=== PATIENT | female | born 1955 | race Hispanic/Latino ===

== ENCOUNTER 2020-04-23 21:10 | Emergency (ER) | payer SELFPAY ==
[~2020-04-23] VITALS: Ht 154.9 cm; Wt 90.7 kg
--- NOTE | 2020-04-23 22:17 | Diagnostic Imaging Report ---
EXAMINATION: Head CT without contrast. HISTORY:Syncope, fall. COMPARISON:None. TECHNIQUE: Multidetector axial images were obtained from the foramen magnum to the vertex without contrast. The images were reconstructed using brain and bone algorithms. Thin section brain images were reformatted into coronal and sagittal planes. Dose modulation, iterative reconstruction, and/or weight based adjustment of the mA/kV was utilized to reduce the radiation dose to as low as reasonably achievable. Intravenous contrast: None IMAGE QUALITY: Acceptable. FINDINGS: Skull/scalp: No lytic or blastic. lesions. No surgical changes. Parenchyma: Punctate dystrophic calcification in right talamantes radiata. No significant surrounding edema or regional mass effect. Nonspecific few, scattered supratentorial white matter hypodensity are likely related to small vessel ischemic changes. No acute hemorrhage, mass or acute major vascular territorial infarct. Arteries: No density suggestive of thrombosis. Dural sinuses: No abnormal density suggestive of thrombosis. Ventricles: No hydrocephalus or displacement. Extra-axial spaces: No abnormal density. Brain volume: Normal for age. Craniocervical junction: No mass, Chiari malformation, or basilar invagination. Sella: No mass. Paranasal/mastoid sinuses: Mild mucosal thickening in left sphenoid sinus. IMPRESSION: No acute intracranial abnormality. Signed by: Dr. Ly Hartmann M.D. on 04/23/2020 10:13 PM
--- NOTE | 2020-04-23 22:18 | Emergency Department Note ---
History of Present Illnes History of Present Illness Chief Complaint: General Medicine Complaints History of Present Illness This is a 64 year old female Chief Complaint Comment 64 Y/O FEMALE PT PRESENTS TO ED FOLLOWING mechanical fall AT HOME WITH LOC; PT HAS APPROX 1.5 CM LACERATION TO BOTTOM LIP; PTS V/S/S; PT REPORTS PAIN TO BUE Historian: Patient, Family Member, Inventory Checker/EMS Arrival Mode: [place] Senior Communications Specialist Required: No Onset (how long ago): hour(s) Location: Face Quality: dull Radiation: Reports non-radiation Severity: moderate Onset quality: sudden Duration (how long): hour(s) (1) Timing of current episode: constant Progression: unchanged Chronicity: new Context: Denies recent illness, Denies recent surgery Relieving factors: none Exacerbating factors: none Associated symptoms: Reports denies other symptoms Treatments prior to arrival: none Past Medical/Family History Physician Review I have reviewed the patient's past medical and family history. Any updates have been documented here. Past Medical History Recent Fever: No Clinical Suspicion of Infectio: No New/Unexplained Change in Ment: No Past Medical History: Hypertension, Diabetes, Hyperlipedemia Past Surgical History: None Review of Systems Review of Systems Constitutional: Reports as per HPI EENTM: Reports as per HPI (Facial pain) Cardiovascular: Reports no symptoms Respiratory: Reports no symptoms Gastrointestinal: Reports no symptoms Genitourinary: Reports no symptoms Musculoskeletal: Reports as per HPI (Bilateral shoulder) Integumentary: Reports no symptoms Neurological: Reports no symptoms Psychological: Reports no symptoms Endocrine: Reports no symptoms Hematological/Lymphatic: Reports no symptoms Physical Exam Related Data Allergies: Coded Allergies: No Known Allergies (Unverified , 04/23/20) Triage Vital Signs Vital Signs Date Time Temp Pulse Resp B/P (MAP) Pulse Ox O2 Delivery O2 Flow Rate FiO2 04/23/20 21:32 98.8 77 18 153/90 99 Room Air Vital signs reviewed: Yes Physical Exam CONSTITUTIONAL Constitutional: Present well-developed, Present well-nourished HENT HENT: Present normocephalic, Present oropharynx clear/moist, Present nose normal; Absent atraumatic (Laceration to inside bottom lip, abrasions to R face. Maxilla stable, no loose teeth) HENT L/R: Present left ext ear normal, Present right ext ear normal EYES Eyes: Reports PERRL, Reports conjunctivae normal NECK Neck: Present ROM normal PULMONARY Pulmonary: Present effort normal, Present breath sounds normal CARDIOVASCULAR Cardiovascular: Present regular rhythm, Present heart sounds normal, Present capillary refill normal, Present normal rate GASTROINTESTINAL Abdominal: Present soft, Present nontender, Present bowel sounds normal GENITOURINARY Genitourinary: Present exam deferred SKIN Skin: Present warm, Present dry MUSCULOSKELETAL Musculoskeletal: Present ROM normal, Present tenderness (R knee, Upper T spine) NEUROLOGICAL Neurological: Present alert, Present oriented x 3, Present no gross motor or sensory deficits PSYCHOLOGICAL Psychological: Present mood/affect normal, Present judgement normal Procedures 12 Lead ECG Interpretation ECG Interpretation : Senior Communications Specialist: Interpreted by ED physician Date: Apr 23, 2020 Rhythm: sinus rhythm Rate: normal QRS axis: normal ST segments normal: Yes T waves normal: Yes Clinical Impression: normal ECG Assessment & Plan Medical Decision Making MDM 64 y.o F presents for mechanical fall. Exam shows abrasions to R face. Ct's and X-rays show no acute injury. Tetanus updated. Patient appropriate for discharge. Reassessment Reassessment time: 00:35 Reassessment Well appearing, NAD Assessment & Plan Final Impression: (1) Lip laceration (2) Fall Depart Disposition: HOME, SELF-CARE Last Vital Signs Date Time Temp Pulse Resp B/P (MAP) Pulse Ox O2 Delivery O2 Flow Rate FiO2 04/23/20 21:34 98.3 78 18 153/90 100 Room Air CHAVO UREÑA MD Apr 23, 2020 22:17
--- NOTE | 2020-04-23 22:26 | Diagnostic Imaging Report ---
History: Syncope, fall. Comparison studies: None Technique: Axial images were obtained through the cervical region.. Coronal and sagittal images reconstructed from the axial data. Dose modulation, iterative reconstruction, and/or weight based adjustment of the mA/kV was utilized to reduce the radiation dose to as low as reasonably achievable. Intravenous contrast: None Findings: Fractures: None. Soft tissue injuries: None. Atlantoaxial articulation: Intact. Alignment: Loss of normal cervical lordosis is either positional or due to muscle spasm. No scoliosis. No subluxation. Asymmetric widening of the interspinous distance at level C5-C6 may represent age indeterminate underlying ligament injury. Cervicomedullary junction: No abnormalities. The foramen magnum is patent. Soft tissues: Focal calcification of the nuchal ligament at level C5-C6. Vertebrae: No fractures, infection or neoplasm. Degenerative changes: Multilevel degenerative disc disease with prominent bridging anterior vertebral osteophyte, predominantly from level C4 to T1, suggestive of diffuse idiopathic skeletal hyperostosis (DISH). Moderate degenerative changes in the anterior atlantodental joint. C3-C4 and C6-C7: Mild right foraminal stenosis due to facet and uncovertebral arthrosis. C7-T1: Severe right and moderate left foraminal stenosis due to facet and uncovertebral arthrosis. No significant canal stenosis. IMPRESSION: 1. No acute cervical spine fracture or dislocation. 2. Asymmetric widening of the interspinous distance at level C5-C6 represents age indeterminate underlying ligament injury. If there is clinical correlation with point tenderness at this level consider follow-up MRI cervical spine without contrast per trauma protocol for further assessment. 3. Ligament, spinal cord and or vascular abnormalities cannot be excluded on the basis of this examination. 4. Cervical spondylosis as detailed above. Signed by: Dr. Ly Hartmann M.D. on 04/23/2020 10:23 PM
--- OUTSIDE RECORDS SUMMARY | 2020-04-23 22:27 | XMS REPORT | Continuity of Care Document ---
Author Author [facility] t Organization [facility] Address [address] [place] [address] Phone Unavailable Care Team Providers Care Gse Mechanic Name Role Phone Jennie LAZO, P Nihita PCP Esdras Burciaga Attphys Unavailable Mundo DUFF, Le Khalil Attphys Unavailable Ana [facility], Suha Bolivar Attphys Johnathon BONILLA, Rae Attphys Unavailable Tono Ramirez Attphys Unavailable Aashish, Souleymane Nelly Attphys Unavailable Jennie LAZO, Johan Nihita Attphys Rob BONILLA, Anna Attphys Unavailable Cameron Phillips Iris Attphys Unavailable Karen Gold Attphys Unavailable Brett Souza Attphys Lyubov Burris MD, Te Perez Attphys Payers Payer Name Policy Type Policy Number Effective Date Expiration Date Conrad anderson [facility] [id number] [id number] [place] [address] xxxxxxxxx 2020 00:00:00 [facility] Problems Condition Name Condition Details Condition Category Status Onset Date Resolution Date Last Treatment Date Treating Clinician Comments Source Moderate major depression Moderate major depression Disease Ac tive 2019-07-09 00:00:00 [facility] History of heart surgery- [place] ; p t does not know what surgery ; hx of heart murmur- to bring papers related to surgery History of heart surgery- [place] ; pt does not know what surgery ; hx of heart murmur- to bring papers related to surgery Disease Active 2018-02-23 00:00:00 [facility] Inadequately controlled diabetes mellitus Inadequately controlled diabetes mellitus Disease Active 2016-11-03 00:00:00 [facility] ASCUS of cervix with negative high risk HPV ASCUS of c ervix with negative high risk HPV Disease Active 2016-10-06 00:00:00 Overview: 10/06/16 Repeat pap 3 years [facility] Diabetes mellitus type 2 without retinopathy Diabetes mellitus type 2 without retinopathy Disease Active 2015-04-08 00:00:00 [facility] NS (nuclear sclerosis) NS (nuclear sclerosis) Disease Active 2015-04-08 00:00:00 [facility] Hyperopia with astigmatism and presbyopia Hyperopia wi th astigmatism and presbyopia Disease [facility] Di[facility] Disease Active 2010-10-15 00:00 :00 [facility] Diabetes mellitus with complication Diabetes mellitus with compl ication Disease Active 2010-10-15 00:00:00 [facility] LBP (low back pain) LBP (low back pain) Disease Active 2010-03-02 00:00 :00 [facility] Obesity Obesity Disease Active [facility] Heart murmur Heart murmur Disease Active Overview: had open heart surgery for repair in 2007 [facility] Preop exam for internal medicine Preop exam for internal medicin e Disease Active [facility] Allergies, Adverse Reactions, Alerts This patient has no known allergies or adverse reactions. Family History Family Member Diagnosis Comments Start Date Stop Date Source Natural brother Diabetes [facility] Natural mother Arthritis [facility] Natural mother Heart [facility] Natural mother Hypertension [facility] Natural sister Diabetes [facility] Social History Social Habit Start Date Stop Date Quantity Comments Source Sex Assigned At [facility] Exposure to SARS-CoV-2 (event) Not sure [facility] Cigarettes smoked current (pack per day) - Reported 00:00:00 2019-08-09 00:00:00 [facility] Cigarette pack-years 2019-08-09 00:00:00 2019-08-09 00:00:00 [facility] Alcohol intake 2019-08-09 00:00:00 2019-08-09 00:00:00 Current non-drinker of alcohol (finding) [facility] History SDOH Food Worry 2019-01-09 00:00:00 2019[facility]01[facility]09 [facility] 2019-01-09 00:00:2019-01-09 00:00:00 2 [facility] History of tobacco use 1995-05-09 00:00:00 Current smoker [facility] Smoking Status Start Date Stop Date Source Former smoker 2019-08-09 00:00:00 2019-08-09 00:00:00 [facility] Medications Ordered Medication Name Filled Medication Name Start Date Stop Da te Current Medication? Ordering Clinician Indication Dosage Frequency Signature (SIG) Comments Components Source insulin detemir U-100 (LEVEMIR FLEXTOUCH U-100 INSULN) 100 u nit/mL (3 mL) Pen 2019-12-13 00:00:00 Yes Inadequately controlled diabet es mellitus Inject 45 units AM and 20 units PM. [facility] pioglitazone (ACTOS) 45 mg tablet 2019-12-13 00:00:00 Yes Inadequately controlled diabetes mellitus 45mg QD Take 1 tablet by mouth daily. [facility] metFORMIN (GLUCOPHAGE) 500 mg tablet 2019-12-13 00:00:00 Yes Inadequately controlled diabetes mellitus 1000mg Take 2 tabl ets by mouth 2 times daily (with meals). [facility] linaGLIPtin (TRADJENTA) 5 mg tablet 2019-12-13 00:00:00 Yes Inadequately controlled diabetes mellitus 5mg QD Take 1 tablet by mouth daily. [facility] pen needle, diabetic 31 gauge x 3/16" needles 2019-12-13 00: 00:00 Yes Inadequately controlled diabetes mellitus Q.5D Inject under the skin 2 times daily. [facility] insulin detemir U-100 (LEVEMIR FLEXTOUCH U-100 INSULN) 100 u nit/mL (3 mL) Pen 2019-11-16 00:00:00 2019-12-13 00:00:00 No Inadequa tely controlled diabetes mellitus 45U QD Inject 45 Units under the skin daily. [facility] pioglitazone (ACTOS) 45 mg tablet 2019-10-25 00:00:00 2019 00:00:00 No Inadequately controlled diabetes mellitus 45mg QD Take 1 tablet by mouth daily. [facility] insulin detemir U-100 (LEVEMIR FLEXTOUCH U-100 INSULN) 100 u nit/mL (3 mL) Pen 2019-10-25 00:00:00 2019-11-16 00:00:00 No Inadequa tely controlled diabetes mellitus 65U Q.5D Inject 65 Units under the skin 2 times daily Wi meals.. [facility] pen needle, diabetic 31 gauge x 3/16" needles 20 20-09-01 00:00:00 2019-12-13 00:00:00 No Inadequately controlled diabetes mellitus Q.5D Inject under the skin 2 times daily. [facility] lisinopril (PRINIVIL) 5 mg tablet 2019-08-09 00:00:00 Yes Essential hypertension 5mg QD Take 1 tablet by mouth daily. [facility] atorvastatin (LIPITOR) 40 mg tablet 2019-08-09 00:00:00 Yes Hyperlipidemia, unspecified hyperlipidemia type 40mg Take 1 tablet by mouth at bedtime nightly. [facility] metFORMIN (GLUCOPHAGE) 500 mg tablet 2019-08-09 00:00: 00 2019-12-13 00:00:00 No Inadequately controlled diabetes mellitus 1000mg Take 2 tablets by mouth 2 times daily (with meals). [facility] pioglitazone (ACTOS) 45 mg tablet 2019-08-09 00:00:00 2019 00:00:00 No Inadequately controlled diabetes mellitus 45mg QD Take 1 tablet by mouth daily. [facility] blood glucose test strips 2019-08-05 00:00:00 Yes Inadequately controlled diabetes mellitus Q.5D 2 times daily. [facility] linaGLIPtin (TRADJENTA) 5 mg tablet 2019-08-05 00:00:0 0 2019-12-13 00:00:00 No Inadequately controlled diabetes mellitus 5mg QD Take 1 tablet by mouth daily. [facility] metFORMIN (GLUCOPHAGE) 500 mg tablet 2019-08-02 00:00: 00 2019-08-09 00:00:00 No Inadequately controlled diabetes mellitus 1000mg Take 2 tablets by mouth 2 times daily (with meals). [facility] pioglitazone (ACTOS) 30 mg tablet 2019-07-10 00:00:00 2019 00:00:00 No Inadequately controlled diabetes mellitus 30mg QD Take 1 tablet by mouth daily. [facility] sertraline (ZOLOFT) 50 mg tablet 2019-07-09 00:00:00 Yes Moderate major depression 50mg QD Take 1 tablet by mouth daily. [facility] lisinopril (PRINIVIL) 5 mg tablet 2019-04-19 00:00:00 2019 00:00:00 No Essential hypertension 5mg QD Take 1 tablet by mouth shelley jefferson [facility] clotrimazole (LOTRIMIN) 1 % topical cream 2019-04-04 00:00:0 0 Yes Nail fungus Q.5D Apply to affected ar ea 2 times daily To nails and affected area on feet for fungus. [facility] insulin detemir U-100 (LEVEMIR FLEXTOUCH U-100 INSULN) 100 u nit/mL (3 mL) Pen 2019-04-04 00:00:00 2019-10-25 00:00:00 No Inadequa tely controlled diabetes mellitus 65U Q.5D Inject 65 Units under the skin 2 times daily Wi meals.. [facility] pen needle, diabetic 31 gauge x 3/16" needles 20 22-03-29 00:00:00 2019-08-31 00:00:00 No Inadequately controlled diabetes mellitus Q.5D Inject under the skin 2 times daily. [facility] pioglitazone (ACTOS) 15 mg tablet 2019-02-07 00:00:00 2019 00:00:00 No 15mg QD Take 1 tablet by mouth daily. [facility] ibuprofen (MOTRIN) 400 mg tablet 2019-01-18 00:00:00 Yes Chronic pain of left knee 400mg Take 1 tablet by jason th every 12 hours as needed for Pain (take with food). [facility] atorvastatin (LIPITOR) 40 mg tablet 2019-01-18 00:00:0 0 2019-08-09 00:00:00 No Hyperlipidemia, unspecified hyperlipidemia type 40mg Take 1 tablet by mouth at bedtime nightly. [facility] tropicamide (MYDRIACYL) 0.5 % ophthalmic solution 2019-01-09 00:00:00 2019-07-08 23:59:00 No Type 2 diabetes sasha itus without complication, with long-term current use of insulin 1[drp] Instill 1 Drop in each eye once as needed for up to 1 dose (for poor retina scan image). [facility] linaGLIPtin (TRADJENTA) 5 mg tablet 2019-01-02 00:00:0 0 2019-08-03 00:00:00 No Inadequately controlled diabetes mellitus 5mg QD Take 1 tablet by mouth daily. [facility] metFORMIN (GLUCOPHAGE) 500 mg tablet 2019-01-02 00:00: 00 2019-08-01 00:00:00 No Inadequately controlled diabetes mellitus 1000mg Take 2 tablets by mouth 2 times daily (with meals). [facility] lancets 28 gauge 2018-04-21 00:00:00 Yes Inadequately controlled diabetes mellitus Q.5D Use 2 times daily. [facility] blood glucose test strips 2018-04-21 00:00:00 2019-08-03 00: 00:00 No Inadequately controlled diabetes mellitus Q.5D 2 times daily. [facility] blood glucose meter 2016 00:00:00 Yes Uncontrolled type 2 diabetes mellitus without complication, without long-term current use of insulin Use as directed.. [facility] Immunizations Ordered Immunization Name Filled Immunization Name Date Status Comments Source Influenza, Injectable, Quadrivalent 2019-07-09 00:00:00 Co mpleted [facility] Influenza, Vaccine<FLUCELVAX>(Multi-Dose) 2018-06-06 00:00 :00 Completed [facility] Tropicamide 0.5% Eye-Yvrose 15ml 2018-02-28 00:00:00 Complete d [facility] Herpes Zoster Vaccine In Clinic 2016 00:00:00 Comple oli [facility] Influenza Vaccine 2016-06-17 00:00:00 Completed [facility] Influenza Vaccine 2013-05-10 00:00:00 Completed [facility] Influenza Vaccine 2012-05-18 00:00:00 Completed [facility] Tdap Tetanus, diphtheria, acellular pertussis Vaccine 2009-10-27 00:00:00 Completed [facility] PPV 23 Pneumococcal Polysaccaride 2009-10-27 00:00:00 Comp leted [facility] Vital Signs Vital Name Observation Time Observation Value Comments Source Systolic blood pressure 2019-09-13 09:58:00 114 mm[Hg] [facility] Diastolic blood pressure 2019-09-13 09:58:00 53 mm[Hg] [facility] Heart rate 2019-09-13 09:58:00 76 /min [facility] Body temperature 2019-09-13 09:58:00 36.5 Cyndi Mane is [facility] Respiratory rate 2019-09-13 09:58:00 18 /min Mane is [facility] Body height 2019-09-13 09:58:00 157.5 cm [facility] Body weight 2019-09-13 09:58:00 94.348 kg [facility] BMI 2019-09-13 09:58:00 38.04 kg/m2 [facility] Procedures Procedure Date / Time Performed Performing Clinician Sourc e CREATININE 2020-02-21 09:18:00 Katt Perez [facility] ELECTROLYTES 2020-02-21 09:18:00 Katt Perez [facility] HEMOGLOBIN A1C 2020-02-21 09:18:00 Katt Perez [facility] ALANINE AMINOTRASFERASE/ASPARTATE AMINOTRANSFERASE (AL T/AST) 2019-11-07 09:00:00 Katt Perez [facility] CREATININE 2019-11-07 09:00:00 Katt Perez [facility] eah ELECTROLYTES 2019-11-07 09:00:00 Katt Perez [facility] CBC (WITHOUT DIFFERENTIAL) 2019-11-07 09:00:00 Katt Perez corbin [facility] HEMOGLOBIN A1C 2019-11-07 09:00:00 Katt Perez [facility] LIPID PROFILE 2019-11-07 09:00:00 Katt Perezn [facility] HEMOGLOBIN A1C 2019-06-29 11:18:00 Jaz Schneider [facility] COMPREHENSIVE METABOLIC PANEL 2019-06-29 11:18:00 Jaz Schneider [facility] HEMOGLOBIN A1C 2019-05-03 12:02:00 Jaz Schneider [facility] Plan of Care Planned Activity Planned Date Details Comments Source Future Scheduled Test 2021-02-20 00:00:00 Hemoglobin A1c cornelio surement (procedure) [code = 82185798] [facility] Scheduled Test 2020-04-04 00:00:00 DM Foot Exam (Year ly) [code = DM Foot Exam (Yearly)] [facility] Scheduled Test 2020-02-29 00:00:00 Breast Cancer Scrn (Yearly) [code = Breast Cancer Scrn (Yearly)] [facility] Scheduled Test 2020-01-24 00:00:00 Screening for feroz gnant neoplasm of colon (procedure) [code = 387004402] [facility] Scheduled Test 2020-01-13 00:00:00 DM Retinal Exam (Y early) [code = DM Retinal Exam (Yearly)] [facility] Scheduled Test 2019-10-01 00:00:00 Screening for feroz gnant neoplasm of cervix (procedure) [code = 417415490] [facility] Encounters Start Date/Time End Date/Time Encounter Type Admission Type [facility] Care Department Encounter ID Source 2019-11-16 00:00:00 2019-11-16 00:00:00 Outpatient [facility] [id number] [facility] 2019-11-07 08:59:55 2019-11-07 08:59:55 Outpatient [facility] [id number] [facility] 2019-11-07 00:00:00 2019-11-07 00:00:00 Outpatient [facility] [id number] [facility] 2019-10-24 07:52:46 2019-10-24 07:52:46 Outpatient [facility] [id number] [facility] 2019-09-27 00:00:00 2019-09-27 00:00:00 Outpatient [facility] [id number] [facility] 2019-09-13 09:58:41 2019-09-13 09:58:41 Outpatient [facility] [id number] [facility] 2019-08-16 00:00:00 2019-08-16 00:00:00 Outpatient [facility] [id number] [facility] 2019-08-09 11:09:08 2019-08-09 11:09:08 Outpatient [facility] [id number] [facility] 2019-08-09 09:42:57 2019-08-09 09:42:57 Outpatient [facility] [id number] [facility] 2019-08-09 09:04:20 2019-08-09 09:04:20 Outpatient [facility] [id number] [facility] 2019-07-10 14:47:26 2019-07-10 14:47:26 Outpatient [facility] [id number] [facility] 2019-07-09 14:48:31 2019-07-09 14:48:31 Outpatient [facility] [id number] [facility] 2019-06-29 11:13:42 2019-06-29 11:13:42 Outpatient [facility] [id number] [facility] 2019-06-29 00:00:00 2019-06-29 00:00:00 Outpatient [facility] [id number] [facility] 2019-05-03 12:01:48 2019-05-03 12:01:48 Outpatient [facility] [id number] [facility] 2019-05-03 00:00:00 2019-05-03 00:00:00 Outpatient [facility] [id number] [facility] 2019-04-25 00:00:00 2019-04-25 00:00:00 Outpatient [facility] [id number] [facility] 2019-04-24 00:00:00 2019-04-24 00:00:00 Outpatient [facility] [id number] [facility] 2019-04-24 00:00:00 2019-04-24 00:00:00 Outpatient [facility] [id number] [facility] 2019-04-05 08:52:30 2019-04-05 08:52:30 Outpatient [facility] [id number] [facility] 2019-04-04 09:40:25 2019-04-04 09:40:25 Outpatient [facility] [id number] [facility] 2019-03-08 10:17:31 2019-03-08 10:17:31 Outpatient [facility] [id number] [facility] 2019-02-28 07:58:58 2019-02-28 07:58:58 Outpatient [facility] [id number] [facility] 2019-02-26 00:00:00 2019-02-26 00:00:00 Outpatient [facility] [id number] [facility] 2019-02-20 00:00:00 2019-02-20 00:00:00 Outpatient [facility] [id number] [facility] 2019-02-07 08:09:34 2019-02-07 08:09:34 Outpatient [facility] [id number] [facility] 2019-01-23 12:48:50 2019-01-23 12:48:50 Outpatient [facility] [id number] [facility] 2019-01-18 10:57:12 2019-01-18 10:57:12 Outpatient [facility] [id number] [facility] 2019-01-18 10:08:55 2019-01-18 10:08:55 Outpatient [facility] [id number] [facility] 2019-01-12 09:53:09 2019-01-12 09:53:09 Outpatient [facility] [id number] [facility] 2019-01-12 09:44:39 2019-01-12 09:44:39 Outpatient [facility] [id number] [facility] 2019-01-12 08:27:30 2019-01-12 08:27:30 Outpatient [facility] [id number] [facility] 2019-01-12 08:21:50 2019-01-12 08:21:50 Outpatient [facility] [id number] [facility] 2019-01-09 11:41:02 2019-01-09 11:41:02 Outpatient [facility] [id number] [facility] 2019-01-09 10:30:09 2019-01-09 10:30:09 Outpatient [facility] [id number] [facility] 2019-01-09 00:00:00 2019-01-09 00:00:00 Outpatient [facility] [id number] [facility] 2018-12-29 00:00:00 2018-12-29 00:00:00 Outpatient [facility] [id number] [facility] 2018-11-15 11:26:07 2018-11-15 11:26:07 Outpatient [facility] [id number] [facility] 2018-09-28 12:37:02 2018-09-28 12:37:02 Outpatient [facility] [id number] [facility] 2018-09-25 00:00:00 2018-09-25 00:00:00 Outpatient [facility] [id number] [facility] 2018-09-19 12:49:58 2018-09-19 12:49:58 Outpatient [facility] [id number] [facility] 2018-09-19 07:14:52 2018-09-19 07:14:52 Outpatient [facility] [id number] [facility] 2018-08-02 08:45:08 2018-08-02 08:45:08 Outpatient [facility] [id number] [facility] 2018-07-05 15:04:32 2018-07-05 15:04:32 Outpatient [facility] [id number] [facility] 2018-06-19 00:00:00 2018-06-19 00:00:00 Outpatient [facility] [id number] [facility] 2018-06-12 15:13:29 2018-06-12 15:13:29 Outpatient [facility] [id number] [facility] 2018-06-07 15:45:06 2018-06-07 15:45:06 Outpatient [facility] [id number] [facility] 2018-06-06 15:19:10 2018-06-06 15:19:10 Outpatient [facility] [id number] [facility] 2018-06-02 08:29:29 2018-06-02 08:29:29 Outpatient [facility] [id number] [facility] 2018-05-16 00:00:00 2018-05-16 00:00:00 Outpatient [facility] [id number] [facility] 2018-03-13 00:00:00 2018-03-13 00:00:00 Outpatient [facility] [id number] [facility] 2018-02-28 10:44:24 2018-02-28 10:44:24 Outpatient [facility] [id number] [facility] 2018-02-28 10:20:16 2018-02-28 10:20:16 Outpatient [facility] [id number] [facility] 2018-02-28 09:18:28 2018-02-28 09:18:28 Outpatient [facility] [id number] [facility] 2018-02-28 00:00:00 2018-02-28 00:00:00 Outpatient [facility] [id number] [facility] 2018-02-23 16:17:58 2018-02-23 16:17:58 Outpatient [facility] [id number] [facility] 2018-02-21 12:38:24 2018-02-21 12:38:24 Outpatient [facility] [id number] [facility] 2018-01-31 10:48:49 2018-01-31 10:48:49 Outpatient [facility] [id number] [facility] 2018-01-03 00:00:00 2018-01-03 00:00:00 Outpatient [facility] [id number] [facility] 2017-12-06 00:00:00 2017-12-06 00:00:00 Outpatient [facility] [id number] [facility] 2017-12-06 00:00:00 2017-12-06 00:00:00 Outpatient [facility] [id number] [facility] 2017-11-21 00:00:00 2017-11-21 00:00:00 Outpatient [facility] [id number] [facility] 2017-11-07 10:18:48 2017-11-07 10:18:48 Outpatient [facility] [id number] [facility] 2017-11-07 09:54:35 2017-11-07 09:54:35 Outpatient [facility] [id number] [facility] 2017-11-07 00:00:00 2017-11-07 00:00:00 Outpatient [facility] [id number] [facility] 2017-10-28 00:00:00 2017-10-28 00:00:00 Outpatient [facility] [id number] [facility] 2017-10-17 14:36:19 2017-10-17 14:36:19 Outpatient [facility] [id number] [facility] 2017-10-14 00:00:00 2017-10-14 00:00:00 Outpatient [facility] [id number] [facility] 2017-10-14 00:00:00 2017-10-14 00:00:00 Outpatient [facility] [id number] [facility] 2017-10-06 14:31:11 2017-10-06 14:31:11 Outpatient [facility] [id number] [facility] 2017-10-06 14:09:00 2017-10-06 14:09:00 Outpatient [facility] [id number] [facility] 2017-10-06 13:14:31 2017-10-06 13:14:31 Outpatient [facility] [id number] [facility] 2017-10-06 00:00:00 2017-10-06 00:00:00 Outpatient [facility] [id number] [facility] 2017-09-06 00:00:00 2017-09-06 00:00:00 Outpatient [facility] [id number] [facility] 2017-03-18 07:27:48 2017-03-18 07:27:48 Outpatient [facility] [id number] [facility] 2017-02-21 00:00:00 2017-02-21 00:00:00 Outpatient [facility] [id number] [facility] 2017-01-31 00:00:00 2017-01-31 00:00:00 Outpatient [facility] [id number] [facility] 2017-01-26 00:00:00 2017-01-26 00:00:00 Outpatient [facility] [id number] [facility] 2017-01-03 07:59:19 2017-01-03 07:59:19 Outpatient [facility] [id number] [facility] 2016-12-13 09:24:31 2016-12-13 09:24:31 Outpatient [facility] [id number] [facility] 2016-12-13 07:58:57 2016-12-13 07:58:57 Outpatient [facility] [id number] [facility] Results Test Description Test Time Test Comments Results Result Comments Source CT BRAIN WO 2020-04-23 22:07:00 [facility] : 1955 Sex: F [facility] [address] [address] Patient Name: JAYLIN NICHOLAS MR #: [id number] : 1955 Age/Sex: 64/F Req #: [id number] Adm Physician: Ordered by: Chavo Burciaga MD Report #: [id number] Location: ER Room/Bed: Procedure: [id number] CT/CT BRAIN WO Exam Date: Exam Time: REPORT STATUS: Signed EXAMINATION: Head CT without contrast. HISTORY:Syncope, fall. COMPARISON:None. TECHNIQUE: Multidetector axial images were obtained from the foramen magnum to the vertex without contrast. The images were reconstructed using brain and bone algorithms. Thin section brain images were reformatted into coronal and sagittal planes. Dose modulation, iterative reconstruction, and/or weight based adjustment of the mA/kV was utilized to reduce the radiation dose to as low as reasonably achievable. Intravenous contrast: None IMAGE QUALITY: Acceptable. FINDINGS: Skull/scalp: No lytic or blastic. lesions. No surgical ch anges. Parenchyma: Punctate dystrophic calcification in right talamantes radiata. No significant surrounding edema or regional mass effect. Nonspecific few, scattered supratentorial white matter hypodensity are likely related to small vessel ischemic changes. No acute hemorrhage, mass or acute major vascular territorial infarct. Arteries: No density suggestive of thrombosis. Dural sinuses: No abnormal density suggestive of thrombosis. Ventricles: No hydrocephalus or displacement. Extra- axial spaces: No abnormal density. Brain volume: Normal for age. Craniocervical junction: No mass, Chiari malformation, or basilar invagination. Sella: No mass. Paranasal/mastoid sinuses: Mild mucosal thickening in left sphenoid sinus. IMPRESSION: No acute intracranial abnormality. Signed by: Dr. Ly Hartmann M.D. on 04/23/2020 10:13 PM Dictated By: LY HARTMANN MD 12 Transcribed By: AVIVA on 04/23/202212 COPY TO: CHAVO BURCIAGA MD
--- OUTSIDE RECORDS SUMMARY | 2020-04-23 22:27 | XMS REPORT | Clinical Summary ---
Author Author [facility] ict Organization [facility] Address Unknown Phone Unavailable Care Team Providers Care Php Lamp Developer Name Role Phone Jaz Schneider MD PCP Remi Flower RN 44 Unavailable Allergies No Known Allergies Medications End Date Status Medication Sig Dispensed Refills Start Date Active blood glucose Use as 1 Kit 0 meterIndications: directed.. 7 Uncontrolled type 2 diabetes mellitus without complication, without long-term current use of insulin Active lancets 28 Use 2 times 100 Each 11 gaugeIndications: daily. 8 Inadequately controlled diabetes mellitus Active ibuprofen (MOTRIN) 400 mg Take 1 tablet 60 tablet 1 tabletIndications: by mouth 9 Chronic pain of left knee every 12 hours as needed for Pain (take with food). Active clotrimazole (LOTRIMIN) 1 Apply to 30 g 4 % topical affected area 9 creamIndications: Nail 2 times daily fungus To nails and affected area on feet for fungus. Active sertraline (ZOLOFT) 50 mg Take 1 tablet 90 tablet 1 tabletIndications: by mouth 0 Moderate major depression daily. Active blood glucose test 2 times 100 Each 6 02 stripsIndications: daily. 0 Inadequately controlled diabetes mellitus Active lisinopril (PRINIVIL) 5 Take 1 tablet 90 tablet 1 mg tabletIndications: by mouth 0 Essential hypertension daily. Active atorvastatin (LIPITOR) 40 Take 1 tablet 90 tablet 1 mg tabletIndications: by mouth at 0 Hyperlipidemia, bedtime unspecified nightly. hyperlipidemia type Active insulin detemir U-100 Inject 45 20 Pen 1 12/02 (LEVEMIR FLEXTOUCH U-100 units AM and 0 INSULN) 100 unit/mL (3 20 units PM. mL) PenIndications: Inadequately controlled diabetes mellitus Active pioglitazone (ACTOS) 45 Take 1 tablet 90 tablet 1 mg tabletIndications: by mouth 0 Inadequately controlled daily. diabetes mellitus Active metFORMIN (GLUCOPHAGE) Take 2 360 tablet 1 500 mg tabletIndications: tablets by 0 Inadequately controlled mouth 2 times diabetes mellitus daily (with meals). Active linaGLIPtin (TRADJENTA) 5 Take 1 tablet 90 tablet 1 mg tabletIndications: by mouth 0 Inadequately controlled daily. diabetes mellitus Active pen needle, diabetic 31 Inject under 200 Each 6 0 gauge x 3/16" the skin 2 0 needlesIndications: times daily. Inadequately controlled diabetes mellitus 08/03/2019 Discontinued (Reorder) blood glucose test 2 times 100 Each 6 04/21/ 01 stripsIndications: daily. 8 Inadequately controlled diabetes mellitus 08/01/2019 Discontinued (Reorder) metFORMIN (GLUCOPHAGE) Take 2 360 tablet 1 500 mg tabletIndications: tablets by 9 Inadequately controlled mouth 2 times diabetes mellitus daily (with meals). 08/03/2019 Discontinued (Reorder) linaGLIPtin (TRADJENTA) 5 Take 1 tablet 90 tablet 1 mg tabletIndications: by mouth 9 Inadequately controlled daily. diabetes mellitus 07/08/2019 tropicamide (MYDRIACYL) Instill 1 15 mL 0 0.5 % ophthalmic Drop in each 9 solutionIndications: Type eye once as 2 diabetes mellitus needed for up without complication, to 1 dose with long-term current (for poor use of insulin retina scan image). 08/09/2019 Discontinued (Reorder) atorvastatin (LIPITOR) 40 Take 1 tablet 90 tablet 1 mg tabletIndications: by mouth at 9 Hyperlipidemia, bedtime unspecified nightly. hyperlipidemia type 07/10/2019 Discontinued (Dose adjustmen t) pioglitazone (ACTOS) 15 Take 1 tablet 30 tablet 1 mg tablet by mouth 9 daily. 08/31/2019 Discontinued (Reorder) pen needle, diabetic 31 Inject under 200 Each 0 0 gauge x 3/16" the skin 2 9 needlesIndications: times daily. Inadequately controlled diabetes mellitus 10/25/2019 Discontinued insulin detemir U-100 Inject 65 32 Pen 2 10/ (LEVEMIR FLEXTOUCH U-100 Units under 9 INSULN) 100 unit/mL (3 the skin 2 mL) PenIndications: times daily Inadequately controlled With meals.. diabetes mellitus 08/09/2019 Discontinued (Reorder) lisinopril (PRINIVIL) 5 Take 1 tablet 90 tablet 0 04/19/201 mg tabletIndications: by mouth 9 Essential hypertension daily. 08/09/2019 Discontinued (Dose adjustmen t) pioglitazone (ACTOS) 30 Take 1 tablet 90 tablet 0 mg tabletIndications: by mouth 0 Inadequately controlled daily. diabetes mellitus 08/09/2019 Discontinued (Reorder) metFORMIN (GLUCOPHAGE) Take 2 360 tablet 0 500 mg tabletIndications: tablets by 0 Inadequately controlled mouth 2 times diabetes mellitus daily (with meals). 12/13/2019 Discontinued (Reorder) linaGLIPtin (TRADJENTA) 5 Take 1 tablet 90 tablet 1 mg tabletIndications: by mouth 0 Inadequately controlled daily. diabetes mellitus 12/13/2019 Discontinued (Reorder) metFORMIN (GLUCOPHAGE) Take 2 360 tablet 1 500 mg tabletIndications: tablets by 0 Inadequately controlled mouth 2 times diabetes mellitus daily (with meals). 10/25/2019 Discontinued pioglitazone (ACTOS) 45 Take 1 tablet 90 tablet 0 mg tabletIndications: by mouth 0 Inadequately controlled daily. diabetes mellitus 12/13/2019 Discontinued (Reorder) pen needle, diabetic 31 Inject under 200 Each 0 0 gauge x /16" the skin 2 0 needlesIndications: times daily. Inadequately controlled diabetes mellitus 11/16/2019 Discontinued (Reorder) insulin detemir U-100 Inject 65 32 Pen 2 10/03 (LEVEMIR FLEXTOUCH U-100 Units under 0 INSULN) 100 unit/mL (3 the skin 2 mL) PenIndications: times daily Inadequately controlled With meals.. diabetes mellitus 12/13/2019 Discontinued (Reorder) pioglitazone (ACTOS) 45 Take 1 tablet 90 tablet 0 mg tabletIndications: by mouth 0 Inadequately controlled daily. diabetes mellitus 12/13/2019 Discontinued (Reorder) insulin detemir U-100 Inject 45 14 Pen 2 11/01 (LEVEMIR FLEXTOUCH U-100 Units under 0 INSULN) 100 unit/mL (3 the skin mL) PenIndications: daily. Inadequately controlled diabetes mellitus Active Problems Problem Noted Date Moderate major depression 07/09/2019 History of heart surgery- [place] ; pt does not kn ow what surgery ; hx 02/23/2018 of heart murmur- to bring papers relate d to surgery Inadequately controlled diabetes mellitus 11/03/2016 ASCUS of cervix with negative high risk HPV 10/07/19 17 Overview: 10/06/16 Repeat pap 3 years Diabetes mellitus type 2 without retinopathy 015 NS (nuclear sclerosis) 04/08/2015 Hyperopia with astigmatism and presbyopia 04/08/2015 Diabetic neuropathy 10/15/2010 Diabetes mellitus with complication 10/15/2010 LBP (low back pain) 03/02/2010 Obesity Heart murmur Overview: had open heart surgery for repair in 20 02 Preop exam for internal medicine Encounters Care Team Description Date Type Specialty Remi Flower RN 04/03/2020 Patient Patient Education Education Katt Perez RPH Inadequately controlled diabetes mellitu s (Primary Dx) 04/02/2020 Telephonic Clinical Pharmacy Encounter Remi Flower RN 03/20/2020 Patient Patient Education Education Rae Diego LD 03/05/2020 Nutrition Radha Dillard 02/27/2020 Patient Nutrition Education Remi Flower, SHERIN 02/14/2020 Patient Patient Education Education Nelly Zendejas 01/31/2020 Patient Patient Education Education Katt Perez RPH Inadequately controlled diabetes mellitu s (Primary Dx) 01/24/2020 Telephonic Clinical Pharmacy Encounter Jaz Schneider MD 01/17/2020 Orders Only Family Practice Jaz Schneider MD 01/16/2020 Orders Only Family Practice Katt Perez RPH Inadequately controlled diabetes mellitu s 12/13/2019 Telephonic Clinical Pharmacy Encounter Anna Rivas LD 12/10/2019 Nutrition Nutrition Kacie Phillips 12/06/2019 Nutrition Nutrition Karen Gold 11/21/2019 Nutrition Nutrition Katt Perez RPH Inadequately controlled diabetes mellitu s 11/16/2019 Telephonic Clinical Pharmacy Encounter Karen Gold 11/07/2019 Nutrition Nutrition Jaz Schneider MD Medications 10/25/2019 Refill [facility] Katt Perez RPH Inadequately controlled diabetes mellitu s (Primary Dx) 10/24/2019 Telephonic Clinical Pharmacy Encounter Karen Gold 10/23/2019 Nutrition Nutrition Anna Rivas, IRENE 10/17/2019 Nutrition Anna Haque, IRENE 10/12/2019 Nutrition Remi Aguilar RN 10/11/2019 Patient Patient Education Education Karen Gold 10/03/2019 Nutrition Nutrition Katt Perez [facility] Inadequately controlled diabetes mellitu s (Primary Dx) 09/13/2019 Office Visit Clinical Pharmacy Jaz Schneider MD 09/03/2019 Clinical [facility] Jaz Schneider MD Medications 08/31/2019 Refill [facility] Katt Perez RPH Inadequately controlled diabetes mellitu s; Essential hypertension; Hyperlipidemia, unspecified hyperlipidemia type 08/09/2019 Office Visit Clinical Pharmacy Katt Perez [facility] Patient left without being seen (Primary Dx) 08/09/2019 Office Visit Clinical Pharmacy [facility] Depression, unspecified depression type (Primary Dx) 08/09/2019 Office Visit Psychology Jaz Schneider MD Medications 08/03/2019 Refill [facility] Jaz Schneider MD Medications 08/01/2019 Refill [facility] Remi Flower RN 07/19/2019 Patient Patient Education Education Katt Perez [facility] Ana Sandoval MD Inadequately controlled diabetes mellitu s (Primary Dx) 07/10/2019 Office Visit Clinical Pharmacy Ana Sandoval MD Moderate major depression (Primary Dx); Diabetes mellitus type 2 without retinopathy; Need for dental care; Encounter for administration of vaccine; Dietary counseling for Above / Below Normal BMI; Exercise counseling for Above Normal BMI Only! 07/09/2019 Office Visit [facility] Ana Sandoval MD 07/09/2019 Orders Only [facility] Remi Flower RN 07/05/2019 Patient Patient Education Education Remi Flower, SHERIN 06/21/2019 Patient Patient Education Education Remi Flower, SHERIN 06/07/2019 Patient Patient Education Education Karen Gold 05/24/2019 Nutrition Nutrition Remi Flower, SHERIN 05/03/2019 Patient Patient Education Education Remi Flower, RN Uncontrolled blood glucose (Primary Dx) 05/03/2019 Patient Patient Education Education after 04/23/2019 Immunizations Name Administration Dates Next Due Herpes Zoster Vaccine In 2016 Clinic Influenza Vaccine 06/17/2016, 05/10/2013, Influenza, Injectable, 07/09/2019 Quadrivalent Influenza, 06/06/2018 Vaccine<FLUCELVAX>(Multi- Dose) PPV 23 Pneumococcal 10/27/2009 Polysaccaride Tdap Tetanus, diphtheria, 10/27/2009 acellular pertussis Vaccine Tropicamide 0.5% Eye-Yvrose 02/28/2018 15ml Family History Medical History Relation Name Comments Diabetes Brother Arthritis Mother Heart Mother Hypertension Mother Diabetes Sister Relation Name Status Comments Brother Alive Brother Daughter Alive x2 Father Maternal Grandfather Maternal Grandmother Mother Paternal Grandfather Paternal Grandmother Sister Alive x3 Sister Son Alive x3 Social History Date Tobacco Use Types Packs/Day Years Used Quit: 05/09/1995 Former Smoker Cigarettes 0.1 3 Smokeless Tobacco: Former User Tobacco Cessation: Counseling Given: No Drinks/Week oz/Week Comments Alcohol Use No Food Insecurity Answer Date Recorded Within the past 12 months, you worried that your Often abdulkadir e 01/09/2019 food would run out before you got money to buy more. Within the past 12 months, the food you bought Sometimes t rue 01/09/2019 just didn't last and you didn't have mo prashanth to get more. Sex Assigned at Date Recorded Not on file Industry Job Start Date Occupation Not on file Not on file Not on file Travel End Travel History Travel Start No recent travel history available. Date Recorded COVID-19 Exposure Response 03/28/2020 9:07 AM CDT In the last month, have you been in contact with No / Unsure someone who was confirmed or suspected to have Coronavirus / COVID-19? Last Filed Vital Signs Reading Time Taken Comments Vital Sign 114/53 09/13/2019 9:58 AM CDT Blood Pressure 76 09/13/2019 9:58 AM CDT Pulse 36.5 C (97.7 F) 09/13/2019 9:58 AM CDT Temperature 18 09/13/2019 9:58 AM CDT Respiratory Rate - - Oxygen Saturation - - Inhaled Oxygen Concentration 94.3 kg (208 lb) 09/13/2019 9:58 AM CDT Weight 157.5 cm (5' 2") 09/13/2019 9:58 AM CDT Height 38.04 09/13/2019 9:58 AM CDT Body Mass Index Plan of Treatment Health Maintenance Due Date Last Done Comments Cervical Cancer Scrn (3 10/01/2019 09/30/2016, Yrs) 05/11/2012, 05/26/2009 DM Retinal Exam (Yearly) 01/13/2020 01/12/2019, 02/28/2018, 09/15/2016, Additional history exists Colorectal Cancer Scrn 01/24/2020 01/23/2019, Annual (FIT/FOBT) Age 50 10/17/2017, to 75 06/18/2016 Breast Cancer Scrn 02/29/2020 02/28/2019, (Yearly) 02/28/2018, 07/27/2016, Additional history exists DM Foot Exam (Yearly) 04/04/2020 04/04/2019, 02/23/2018, 04/19/2013, Additional history exists DM HGBA1C (Yearly) 02/20/2021 02/21/2020, 11/07/2019, 06/29/2019, Additional history exists Goals Goal Patient Associated Recent Progress Patient-Stat Aut hor Goal Type Problems ed? Reduce sugar intake Diet On track (05/24/2019 No Trimino, 12:48 PM UPHOLSTERY SEWER) IRENE Ley Note: soda Use plate model Diet On track (05/24/2019 No T rimino, 12:48 PM UPHOLSTERY SEWER) IRENE Ley I will eat dinner at the same General Yes Prideaux, time each day Karen LOWER BLOOD GLUCOSE Lifestyle Not on track No Mariah Em (12/20/2017 4:57 PM G, RN CDT) Lower blood glucose Lifestyle No Hannah Briseno Eat Healthy Lifestyle Not on track No Nela Davis (07/09/2019 3:46 PM Tracey UPHOLSTERY SEWER) Exercise Regularly Self On track (05/24/2019 No Mariah Orozco management 12:48 PM UPHOLSTERY SEWER) G, RN Eat non-starchy vegetables Self On track (05/24/2019 No Alla management 12:48 PM UPHOLSTERY SEWER) Karen Procedures Comments Procedure Name Priority Date/Time Associated Diag nosis HEMOGLOBIN A1C Routine 02/21/2020 Inadequately co ntrolled 9:18 AM CDT diabetes mellitus ELECTROLYTES Routine 02/21/2020 Inadequately co ntrolled 9:18 AM CDT diabetes mellitus CREATININE Routine 02/21/2020 Inadequately co ntrolled 9:18 AM CDT diabetes mellitus LIPID PROFILE Routine 11/07/2019 Inadequately co ntrolled 9:00 AM CDT diabetes mellitus HEMOGLOBIN A1C Routine 11/07/2019 Inadequately co ntrolled 9:00 AM CDT diabetes mellitus CBC (WITHOUT Routine 11/07/2019 Inadequately co ntrolled DIFFERENTIAL) 9:00 AM CDT diabetes mellitus ELECTROLYTES Routine 11/07/2019 Inadequately co ntrolled 9:00 AM CDT diabetes mellitus CREATININE Routine 11/07/2019 Inadequately co ntrolled 9:00 AM CDT diabetes mellitus ALANINE Routine 11/07/2019 Inadequately co ntrolled AMINOTRASFERASE/ASPARTATE 9:00 AM CDT diabetes me llitus AMINOTRANSFERASE (ALT/AST) COMPREHENSIVE METABOLIC Routine 06/29/2019 Inadeq uately controlled PANEL 11:18 AM UPHOLSTERY SEWER diabetes mellitus HEMOGLOBIN A1C Routine 06/29/2019 Inadequately co ntrolled 11:18 AM UPHOLSTERY SEWER diabetes mellitus HEMOGLOBIN A1C Routine 05/03/2019 Uncontrolled bl ood 12:02 PM CDT glucose after 04/23/2019 Results * Creatinine (02/21/2020 9:18 AM CDT) Only the most recent of 2 results within the time period is included. Creatinine 0.6 0.6 - 1.2 mg/dL [facility] GFR, Estimated >90 >=90 mL/min/1.73 m2 [facility] Specimen Blood Performing Organization Address [facility] one Number [facility] [address] [place] [address] * Hemoglobin A1C (02/21/2020 9:18 AM CDT) Only the most recent of 4 results within the time period is included. Pathologist [facility] Hemoglobin A1c 6.2 (H) 4.3 - 6.1 % [facility] Estimated 131 (H) 70 - 110 mg/dL [facility] Average Glucose [facility] Specimen Blood Performing Organization Address [facility] one Number [facility] [address], [place] [id number] * Electrolytes (02/21/2020 9:18 AM CDT) Only the most recent of 2 results within the time period is included. Sodium 140 136 - 145 mmol/L [facility] Potassium 4.9 3.5 - 5.1 mmol/L [facility] Chloride 104 98 - 107 mmol/L [facility] CO2 28 21 - 31 mmol/L [facility] Anion Gap 8 5 - 16 mmol/L [facility] Specimen Blood Performing Organization Address [facility] one Number [facility] [address] [place] [address] * Lipid Profile (11/07/2019 9:00 AM CDT) Cholesterol 156.0 <=200.0 mg/dL [facility] Triglyceride 70 <150 mg/dL [facility] HDL 61.0 See Reference Range [facility] Narrative. mg/dL [facility] LDL 81 <100 mg/dL [facility] Comment: [facility] Optimal: < 100.0 mg/dL Near Optimal: 120-129 mg/dL Borderline: 130-159 mg/dL High: 160-189 mg/dL Very High: >=190 mg/dL Patient Yes [facility] Fasting? LABOR[facility] Specimen Blood Performing Organization Address [facility] one Number [facility] [address] [id number] [phone] * CBC (without differential) (11/07/2019 9:00 AM CDT) Pathologist [facility] WBC 7.6 4.5 - 11.0 K/uL [facility] RBC 3.90 (L) 4.20 - 5.40 M/uL [facility] Hemoglobin 11.5 (L) 12.0 - 16.0 g/dL [facility] Hematocrit 36.4 (L) 37.0 - 47.0 % [facility] MCV 93.3 (H) 82.0 - 92.0 fL [facility] MCH 29.5 27.0 - 32.0 pg [facility] MCHC 31.6 (L) 32.0 - 36.0 g/dL [facility] RDW 50.5 (H) 36.4 - 46.3 fL [facility] Platelet 296 150 - 400 K/uL [facility] Mean Platelet 11.2 9.4 - 12.4 fL [facility] Volume [facility] Percent NRBC 0.0 % [facility] Specimen Blood Performing Organization Address [facility] Ph one Number [facility] [address] [place] [address] * ALT/AST (11/07/2019 9:00 AM CDT) [facility] ALT 15 7 - 52 U/L [facility] AST 17 13 - 39 U/L [facility] Specimen Blood Performing Organization Address [facility] Ph one Number [facility] [address] [place] [address] [phone] * Comprehensive Metabolic Panel (06/29/2019 11:18 AM UPHOLSTERY SEWER) Pathologist [facility] Sodium 139 136 - 145 mmol/L [facility] Potassium 5.1 3.5 - 5.1 mmol/L [facility] Chloride 102 98 - 107 mmol/L [facility] CO2 28 21 - 31 mmol/L [facility] Glucose 233 (H) 70 - 110 mg/dL [facility] Calcium 9.2 8.6 - 10.3 mg/dL [facility] Urea Nitrogen 15.0 7.0 - 25.0 mg/dL [facility] Creatinine 0.6 0.6 - 1.2 mg/dL [facility] Alkaline 124 (H) 34 - 104 U/L [facility] Phosphatase [facility] ALT 25 7 - 52 U/L [facility] AST 14 13 - 39 U/L [facility] Bilirubin, 0.4 0.2 - 1.2 mg/dL [facility] Total [facility] Total Protein 6.6 6.0 - 8.3 g/dL [facility] GFR, Estimated >90 >=90 mL/min/1.73 m2 [facility] Albumin 3.6 (L) 3.7 - 5.3 g/dL [facility] Anion Gap 9 5 - 16 mmol/L [facility] Specimen Blood Performing Organization Address City/State/Zipcode Ph one Number [facility] [address] [place] [phone] after 04/23/2019 Insurance Type Payer Benefit Subscriber ID Effective Phone Address Plan / Dates Group [facility] SELF-PAY SELF-PAY xxxxxxxxx 2020- [phone] [facility] [place] [address] Guarantor Name Account Relation to Date of Phone Vance diez Address Type Patient JAYLIN RICHARDS Personal/F Head of 1955 [phone] [facility]Home[facility] [place], [place] [address] (Self)
--- NOTE | 2020-04-23 22:32 | Diagnostic Imaging Report ---
History:Trauma, fall. Comparison studies: None Technique: Axial images were obtained through the maxillofacial region. Coronal and sagittal images reconstructed from the axial data. Dose modulation, iterative reconstruction, and/or weight based adjustment of the mA/kV was utilized to reduce the radiation dose to as low as reasonably achievable. Intravenous contrast: None Findings: Soft tissues: Minimal right upper lip subcutaneous soft tissue swelling. No soft tissue emphysema or radiopaque foreign body. Bones: No fractures or bony abnormalities. Orbits: Globes: Intact Extra or intraconal abnormalities: None. Paranasal sinuses: Clear Incidental finding: Mild degenerative changes in left temporomandibular joint. IMPRESSION: No acute fracture. Minimal right upper lip soft tissue swelling. Signed by: Dr. Ly Hartmann M.D. on 04/23/2020 10:29 PM
[2020-04-23 22:33] LABS: BASOPHILS # (AUTO) 0.1 (0.0-0.1); BASOPHILS % 0.5 % (0.0-1.0); EOSINOPHILS # (AUTO) 0.1 (0.0-0.4); EOSINOPHILS % 1.3 % (0.0-6.0); HEMATOCRIT 35.7 % (34.2-44.1); HEMOGLOBIN 11.4 g/dL (12.0-16.0); LYMPHOCYTES # (AUTO) 2.6 (1.0-3.2); LYMPHOCYTES % 24.3 % (18.0-39.1); MEAN CORPUSCULAR HEMOGLOBIN 29.4 pg (28-32); MEAN CORPUSCULAR HGB CONC 31.9 g/dL (31-35); MONOCYTES # (AUTO) 0.7 (0.2-0.8); MONOCYTES % 6.3 % (4.4-11.3); NEUTROPHILS # (AUTO) 7.1 (2.1-6.9); NEUTROPHILS % 67.2 % (38.7-80.0); PLATELET COUNT 333 x10e3/uL (140-360); RED BLOOD COUNT 3.88 x10e6/uL (3.6-5.1); RED CELL DISTRIBUTION WIDTH 14.6 % (11.7-14.4)
[2020-04-23 22:43] LABS: INR 0.96; PROTHROMBIN TIME 13.3 seconds (11.9-14.5)
[2020-04-23 22:52] LABS: ALANINE AMINOTRANSFERASE 17 IU/L (0-55); ALBUMIN 3.6 g/dL (3.5-5.0); ALKALINE PHOSPHATASE 117 IU/L (40-150); ANION GAP 15.2 mmol/L (8-16); BLOOD UREA NITROGEN 19 mg/dL (7-26); BUN/CREATININE RATIO 22 (6-25); CALCIUM 9.2 mg/dL (8.4-10.2); CARBON DIOXIDE 26 mmol/L (22-29); CHLORIDE 102 mmol/L (98-107); CREATININE, SERUM 0.88 mg/dL (0.57-1.11); EST GLOMERULAR FILTRATION RATE > 60 ML/MIN (60-); GLUCOSE 188 mg/dL (74-118); POTASSIUM 4.2 mmol/L (3.5-5.1); SODIUM 139 mmol/L (136-145)
[2020-04-23] MEDS ORDERED: TETANUS/DIPHTHERIA TOX ADULT 0.5 ML SYR IM ONE (23:30)
--- NOTE | 2020-04-23 23:52 | Diagnostic Imaging Report ---
History: Trauma, fall complains of upper back tenderness. Comparison studies: None Technique: Axial were obtained without IV contrast through the thoracic region. Coronal and sagittal images reconstructed from the axial data. Dose modulation, iterative reconstruction, and/or weight based adjustment of the mA/kV was utilized to reduce the radiation dose to as low as reasonably achievable. Intravenous contrast: None Findings: Alignment: Normal kyphosis. Mild dextrocurvature of the thoracic spine may be positional or due to scoliosis. No subluxation. Soft tissues: Mild atherosclerotic calcification in the aorta. Left nephrolithiasis is partially visualized.. Paraspinal muscles: Unremarkable Spinal cord: Can not be evaluated. Vertebrae: No fractures, infection or neoplasm. Degenerative changes: Multilevel degenerative disc disease and bridging anterior vertebral osteophytes represents diffuse idiopathic skeletal hyperostosis (DISH). No significant canal or foraminal stenosis. IMPRESSION: 1. No acute thoracic spine fracture and dislocation. 2. Ligament, spinal cord and or vascular abnormalities cannot be excluded on the basis of this examination. Signed by: Dr. Ly Hartmann M.D. on 04/23/2020 11:48 PM
--- NOTE | 2020-04-24 00:09 | Diagnostic Imaging Report ---
EXAMINATION: CHEST SINGLE (PORTABLE) INDICATION: Fall COMPARISON: Thoracic spine CT 04/23/2020 FINDINGS: TUBES and LINES: None. LUNGS: Normal lung volumes. Lungs are clear. Prominent central pulmonary vasculature. PLEURA: No pleural effusion or pneumothorax. HEART AND MEDIASTINUM: Cardiac size is mildly enlarged. BONES AND SOFT TISSUES: No acute osseous lesion. Soft tissues are unremarkable. Sternotomy wires UPPER ABDOMEN: No free air under the diaphragm. IMPRESSION: Mild cardiomegaly and pulmonary vascular congestion. Signed by: Blake Tavera DO on 04/24/2020 12:06 AM
--- NOTE | 2020-04-24 00:10 | Diagnostic Imaging Report ---
X-ray left shoulder 2 views HISTORY: Pain. COMPARISON: None available. FINDINGS: Bones: No acute displaced fracture. Osseous alignment is within normal limits. Sternotomy wires. Surgical clips in the upper mediastinum. Joints: The joint spaces are well-maintained. Degenerative changes. Soft tissues: Rotator cuff calcifications. IMPRESSION: No acute radiographic osseous abnormality. Degenerative changes in the shoulder. Rotator cuff calcific tendinopathy. Signed by: Blake Tavera DO on 04/24/2020 12:07 AM
--- NOTE | 2020-04-24 00:11 | Diagnostic Imaging Report ---
X-ray right shoulder 2 views HISTORY: Pain. COMPARISON: None available. FINDINGS: Bones: No acute displaced fracture. Osseous alignment is within normal limits. Sternotomy wires. Surgical clips in the upper mediastinum. Joints: The joint spaces are well-maintained. Degenerative changes. Soft tissues: Rotator cuff calcifications. IMPRESSION: No acute radiographic osseous abnormality. Degenerative changes in the shoulder. Rotator cuff calcific tendinopathy. Signed by: Blake Tavera DO on 04/24/2020 12:08 AM
--- NOTE | 2020-04-24 00:12 | Diagnostic Imaging Report ---
X-ray pelvis 1 view HISTORY: Pain. COMPARISON: None available. FINDINGS: Some osseous structures are partially obscured by bowel contents. Bones: No acute displaced fracture. Osseous alignment is within normal limits. Joints: No dislocations. Degenerative changes in the spine hips and pelvis. Soft tissues: Suspect contrast in the urinary bladder lumen. IMPRESSION: No acute radiographic abnormality. Degenerative changes in the spine hips and pelvis. Signed by: Blake Tavera DO on 04/24/2020 12:09 AM
--- NOTE | 2020-04-24 00:14 | Diagnostic Imaging Report ---
X-ray right knee 3 views and left knee 3 views HISTORY: Pain. COMPARISON: None available. FINDINGS: Bones: No acute displaced fracture. Osseous alignment is within normal limits. Joints: The joint spaces are well-maintained. Degenerative changes Soft tissues: Mild right anterior knee soft tissue thickening. Vascular calcifications. IMPRESSION: No acute radiographic osseous abnormality. Mild right anterior knee soft tissue thickening could be due to contusion. Degenerative changes in the knees. Signed by: Blake Tavera DO on 04/24/2020 12:11 AM
--- NOTE | 2020-04-24 00:21 | Diagnostic Imaging Report ---
EXAM: CT Chest WITHOUT contrast INDICATION: Fall, T-spine tenderness COMPARISON: same-day thoracic spine CT TECHNIQUE: Chest was scanned utilizing a multidetector helical scanner from the lung apex through the level of the adrenal glands without administration of IV contrast. Absence of intravenous contrast decreases sensitivity for detection of lymphadenopathy and vascular pathology. Coronal and sagittal reformations were obtained. Routine protocol was performed. IV CONTRAST: None COMPLICATIONS: None RADIATION DOSE: Total DLP: 633 mGy*cm Estimated effective dose: (DLP x 0.014 x size factor) mSv CTDIvol has been reviewed. It is below the limits set by the Radiation Protocol Committee (RPC). Dose modulation, iterative reconstruction, and/or weight based adjustment of the mA/kV was utilized to reduce the radiation dose to as low as reasonably achievable. FINDINGS: LINES/ TUBES: None. LUNGS AND AIRWAYS: The lungs are unremarkable. Airways are normal. PLEURA: The pleural spaces are clear. HEART AND MEDIASTINUM: The thyroid gland is normal. No mediastinal, hilar or axillary lymphadenopathy. The heart is normal in size. There is no pericardial effusion. Main pulmonary artery is 3.7 cm in diameter, dilated UPPER ABDOMEN: Unremarkable. Benign-appearing subcentimeter parenchymal calcification in the left renal superior pole. BONES: Degenerative changes in the spine. Sternotomy wires. SOFT TISSUES: Unremarkable. IMPRESSION: No acute traumatic abnormality. Degenerative changes in the spine. Cardiomegaly and pulmonary hypertension. Signed by: Blake Tavera DO on 04/24/2020 12:18 AM
== END 2020-04-24 00:57 | disposition home or self-care (01) ==
LOC: ER 22:24
DX: S01.511A Laceration without foreign body of lip, initial encounter (principal); W18.30XA Fall on same level, unspecified, initial encounter; Y93.01 Activity, walking, marching and hiking; I10 Essential (primary) hypertension; E11.9 Type 2 diabetes mellitus without complications; E78.5 Hyperlipidemia, unspecified
CPT/HCPCS: 36415; 70450; 70486; 71045; 71250; 72125; 72128; 72170; 80053; 85025; 85610; 90714; 93005; 99283